=== PATIENT | male | born 1970 | race Caucasian/White ===

== ENCOUNTER 2018-03-24 20:29 | Emergency (ER) | payer BC ==
[2018-03-24 20:41] VITALS: BP 151/101
[2018-03-24] MEDS ORDERED: Lidocaine 1% with EPINEPHrine 1:100,000 20 ML MDV INJECT ONE (21:02)
[2018-03-24] MEDS ORDERED: Doxycycline 100 MG Cap PO ONE (21:03)
[2018-03-24] MEDS ORDERED: cefTRIAXone 1 GM, Lidocaine 1% 2.1 ML IM SCH ×2 (21:15)
--- NOTE | 2018-03-24 21:57 | EDM.PDOC ---
ED HPI GENERAL MEDICAL PROBLEM - General Chief Complaint: Laceration Stated Complaint: HAND LACERATION Time Seen by Provider: 03/24/18 20:41 Source of Information: Reports: Patient, Family History Limitations: Reports: No Limitations - History of Present Illness INITIAL COMMENTS - FREE TEXT/NARRATIVE: The patient presents with a laceration to the right hand. He had a roast in the palm of his right hand and he was cutting it and it cut the palm of his right hand. He cannot flex his right 4th and 5th fingers. He is right handed. The laceration is about 6cm. His tetanus is up to date. A couple years ago he had an infection in his right 5th finger. He says it was MRSA. He needed infusions at the hospital. Onset: Sudden Duration: Minutes: Location: Reports: Upper Extremity, Right (hand) Quality: Reports: Sharp Severity: Moderate Improves with: Reports: Immobilization Worsens with: Reports: Movement Context: Reports: Trauma (He cut his hand with a knife) Associated Symptoms: Reports: No Other Symptoms - Related Data Allergies Allergy/AdvReac Type Severity Reaction Status Date / Time amoxicillin Allergy Cannot Verified 03/24/18 20:41 Remember latex Allergy Cannot Verified 03/24/18 20:41 Remember Home Meds: Home Meds Doxycycline [Vibramycin] 100 mg PO BID #20 cap 03/24/18 [Rx] Past Medical History - Past Surgical History HEENT Surgical History: Reports: Tonsillectomy Social & Family History - Tobacco Use Smoking Status *Q: Never Smoker Second Hand Smoke Exposure: No - Caffeine Use Caffeine Use: Reports: None - Recreational Drug Use Recreational Drug Use: No ED ROS GENERAL - Review of Systems Review Of Systems: See Below Constitutional: Reports: No Symptoms HEENT: Reports: No Symptoms Respiratory: Reports: No Symptoms Cardiovascular: Reports: No Symptoms Endocrine: Reports: No Symptoms GI/Abdominal: Reports: No Symptoms : Reports: No Symptoms Musculoskeletal: Reports: Other (6cm laceration to the palm of his right hand) ED EXAM, SKIN/RASH Exam: See Below Exam Limited By: No Limitations General Appearance: Alert, No Apparent Distress Ears: Normal External Exam Nose: Normal Inspection Head: Atraumatic, Normocephalic Neck: Normal Inspection Respiratory/Chest: No Respiratory Distress Extremities: Other (6cm laceration to the palm of his hand with lacerated flexor tendons of the 4th and 5th digits. He still has good sensation and capillary refill.) ED SKIN PROCEDURES - Laceration/Wound Repair Right Hand Lac/Wound length In cm: 6 Appearance: Subcutaneous, Linear Distal NVT: Neuro & Vascular Intact, Other (flexer tendon laceration ) Anesthetic Type: Local Local Anesthesia - Lidocaine (Xylocaine): 1% with EPI Skin Prep: Saline Exploration/Debridement/Repair: Wound Explored, In a Bloodless Field, Explored to Base Closed with: Sutures Suture Size: 4-0 # of Sutures: 7 Suture Type: Nylon, Interrupted, Simple Tetanus Status Addressed: Yes Complications: No - Splinting Right Upper Extremity Splint Site: right Pre-Procedure NV Status: Normal Post-Procedure NV Status: Normal Splint Material: Fiberglass Splint Design: Gutter Applied & Form Fitted By: Provider Provider Post-Splint Application NV Check: NV Status Normal, Good Position Complications: No Course - Vital Signs Last Recorded V/S: Last Vital Signs Temp 98.2 F 03/24/18 20:39 Pulse 60 03/24/18 20:39 Resp 18 03/24/18 20:39 BP 151/101 H 03/24/18 20:39 Pulse Ox 100 03/24/18 20:39 - Orders/Labs/Meds Meds: Medications Discontinued Medications Generic Name Dose Route Start Last Admin Trade Name Freq PRN Reason Stop Dose Admin Ceftriaxone Sodium 1 gm/ 0 gm 03/24/18 21:15 Lidocaine HCl 2.1 ml IM Q24H [facility] Doxycycline Hyclate 100 mg 03/24/18 21:03 03/24/18 21:09 Vibramycin PO 03/24/18 21:04 100 mg ONETIME ONE Administration Lidocaine/Epinephrine 20 ml 03/24/18 21:02 03/24/18 21:09 Xylocaine 1% With Epinephrine 1:100,000 INJECT 03/24/18 21:03 20 ml ONETIME ONE Administration - Re-Assessments/Exams Free Text/Narrative Re-Assessment/Exam: 03/24/18 21:59 The patient has a flexor tendons laceration to the 4th and 5th fingers at the palm of his hand. I called Dr Monroy in [place] and he wanted me to close the wound, give him antibiotics and splint him. Someone from his office will call the patient tomorrow for possible surgery on Thursday. I gave the patient doxycycline because he was MRSA positive for a wound on that hand in the 5th finger. I will give him a prescription for more. Departure - Departure Time of Disposition: 22:00 Disposition: Home, Self-Care 01 Condition: Good Clinical Impression: Laceration of right hand Qualifiers: Encounter type: initial encounter Foreign body presence: without foreign body Qualified Code(s): S61.411A - Laceration without foreign body of right hand, initial encounter Laceration of flexor tendon of right hand Qualifiers: Encounter type: initial encounter Qualified Code(s): S66.821A - Laceration of other specified muscles, fascia and tendons at wrist and hand level, right hand , initial encounter - Discharge Information *PRESCRIPTION DRUG MONITORING PROGRAM REVIEWED*: No *COPY OF PRESCRIPTION DRUG MONITORING REPORT IN PATIENT [place]: No Prescriptions: Doxycycline [Vibramycin] 100 mg PO BID #20 cap Referrals: PCP,None [Primary Care Provider] - Blayne Monroy MD [Consulting Physician] - 2 Days Forms: ED Department Discharge, ED Return to Work/School Form Additional Instructions: Someone from [facility] will call you tomorrow. If you do not hear from them by noon, call them. Keep the splint on until you are seen. Take the doxycycline 2 times per day for 10 days. Please return if you are worse.
== END 2018-03-24 22:13 | disposition home or self-care (01) ==
LOC: JD.ED 20:29
DX: S66.124A Laceration of flexor muscle, fascia and tendon of right ring finger at wrist and hand level, initial encounter (principal); S66.126A Laceration of flexor muscle, fascia and tendon of right little finger at wrist and hand level, initial encounter; S61.411A Laceration without foreign body of right hand, initial encounter; Z88.1 Allergy status to other antibiotic agents; Z91.040 Latex allergy status; Z98.890 Other specified postprocedural states; W26.0XXA Contact with knife, initial encounter
CPT/HCPCS: 12002; 29125; 99283; A9270

== ENCOUNTER 2024-09-04 22:19 | Emergency (ER) | payer BC ==
[2024-09-04 22:25] VITALS: PULSE 80
[2024-09-04] MEDS ORDERED: Sodium Chloride 0.9% 10 ML Syringe FLUSH PRN (22:43)
[2024-09-04 23:01] LABS: BASOPHILS ABSOLUTE AUTO 0.1 K/mm3 (0.0-0.2); BASOPHILS PERCENT AUTO 0.9 % (0.0-1.0); EOSINOPHILS ABSOLUTE AUTO 0.4 K/mm3 (0.0-0.4); EOSINOPHILS PERCENT AUTO 8.0 % (0.0-6.0); IMMATURE GRAN ABSOLUTE AUTO 0.01 K/mm3 (0.00-0.05); IMMATURE GRAN PERCENT AUTO 0.2 % (0.0-0.4); LYMPHOCYTES ABSOLUTE AUTO 1.3 K/mm3 (1.0-4.8); LYMPHOCYTES PERCENT AUTO 24.5 % (24.0-44.0); MEAN PLATELET VOLUME 9.4 fl (9.4-12.4); MONOCYTES ABSOLUTE AUTO 0.5 K/mm3 (0.0-0.8); MONOCYTES PERCENT AUTO 9.3 % (0.0-8.0); NEUTROPHILS ABSOLUTE AUTO 3.1 K/mm3 (1.8-7.7); NEUTROPHILS PERCENT AUTO 57.1 % (41.0-71.0); NRBC ABSOLUTE 0.00 (0.00-0.02); NRBC PERCENT 0.0 % (0.0-0.2); PLATELET COUNT,PLT 169 K/mm3 (150-400); RED BLOOD CELL COUNT 4.72 M/mm3 (4.52-5.90); WHITE BLOOD CELL COUNT,WBC 5.39 K/mm3 (3.9-11.3)
[2024-09-04 23:34] LABS: A/G RATIO 0.9 (1-2); ALANINE AMINOTRANSFERASE,ALT 32.0 U/L (16-63); ASPARTATE AMNIOTRANSFERASE,AST 26.0 U/L (15-37); BILIRUBIN TOTAL 0.4 mg/dL (0.2-1.0); BLOOD UREA NITROGEN,BUN 8.0 mg/dL (7-18); CARBON DIOXIDE,CO2 27.0 mEq/L (21-32); CHLORIDE,CL 101.0 mEq/L (98-107); CREATININE 0.8 mg/dL (0.7-1.3); EST CRCL DRUG DOSING (CG) 93.04 mL/min; ESTIMATED GFR 104.0 mL/min (>60); ETHANOL BLOOD MEDICAL 0.26 gm% (0.00); GLUCOSE RANDOM 100.0 mg/dL (70-99); POTASSIUM,K 3.3 mEq/L (3.5-5.1); PROTEIN TOTAL,TP 7.0 g/dl (6.4-8.2); SODIUM,NA 137.0 mEq/L (136-145); TSH 4.509 uIU/mL (0.358-3.74)
[2024-09-04] MEDS: Iopamidol 755 Mg/ML 100 ML Bottle IVPUSH ONE (23:38)
[2024-09-04] MEDS: Sodium Chloride 0.9% 10 ML Syringe FLUSH PRN (23:38)
[2024-09-05 00:05] LABS: T4 FREE 0.67 ng/dL (0.76-1.46)
[2024-09-05 01:19] VITALS: BP 118/85
== END 2024-09-05 01:18 | disposition home or self-care (01) ==
LOC: JD.ED 22:19
DX: R29.898 Other symptoms and signs involving the musculoskeletal system (principal); F10.10 Alcohol abuse, uncomplicated; Z88.0 Allergy status to penicillin; Z79.899 Other long term (current) drug therapy
CPT/HCPCS: 36415; 70450; 70496; 70498; 80053; 80143; 80179; 80307; 83735; 84439; 84443; 85025; 93005; 96360; 99285; J7030; Q9967; 93010; 99283